=== PATIENT | male | born 1980 | race Two or more races ===

== ENCOUNTER 2023-05-11 11:37 | Emergency (ER) | payer OTHER ==
[~2023-05-11] VITALS: Ht 190.5 cm; Wt 108.9 kg
[2023-05-11 12:51] LABS: HEMATOCRIT 42.2 % (39.0-48.0); HEMOGLOBIN 14.6 g/dL (13-16.00); MEAN CELL VOLUME 93.2 fL (80.0-100.00); MEAN CORPUSCULAR HEMOGLOBIN 32.3 pg (27.00-32.0); MEAN CORPUSCULAR HGB CONC 34.6 g/dl (32.0-36.0); PLATELET COUNT 180 K/uL (150-450); RED BLOOD COUNT 4.52 M/uL (4.00-6.00); RED CELL DISTRIBUTION WIDTH 13.3 % (11.5-14.5)
[2023-05-11 12:54] LABS: URINE APPEARANCE Clear; URINE BILIRRUBIN Negative (NEGATIVE); URINE BLOOD Trace; URINE COLOR Yellow; URINE GLUCOSE Negative (NEGATIVE); URINE LEUKOCYTE Negative; URINE NITRATE Negative; URINE PROTEIN Trace (NEGATIVE)
[2023-05-11 12:58] LABS: URINE BACTERIA 12.6 uL (0.0-1933); URINE RBC 19.6 uL (0.0-20.8)
[2023-05-11 13:12] LABS: CALCIUM 9.4 mg/dL (8.5-10.1); CREATININE SERUM 1.09 mg/dL (0.70-1.30); GFR 73.49; POTASSIUM 3.96 mEq/L (3.5-5.1)
[2023-05-11 14:01] LABS: URINE WBC 1.5 uL (0.0-23.2)
== END 2023-05-11 16:07 | disposition home or self-care (01) ==
LOC: ER 11:37
PROVIDERS: Emergency Medicine
DX: K52.89 Other specified noninfective gastroenteritis and colitis (principal)

== ENCOUNTER 2023-09-20 14:35 | Emergency (ER) | payer OTHER ==
[~2023-09-20] VITALS: Ht 190.5 cm; Wt 110.7 kg
[2023-09-20] MEDS ORDERED: ACETAMINOPHEN WITH CODEINE 1 UDTAB TABLET PO ONE (16:30)
[2023-09-20] MEDS ORDERED: KETOROLAC TROMETHAMINE 60 MG VIAL IM ONE (16:30)
[2023-09-20] MEDS ORDERED: MEPERIDINE HCL/PF 25 MG/ML VIAL IM ONE (20:45)
== END 2023-09-20 23:43 | disposition home or self-care (01) ==
LOC: ER
DX: S62.014A Nondisplaced fracture of distal pole of navicular [scaphoid] bone of right wrist, initial encounter for closed fracture (principal); W18.39XA Other fall on same level, initial encounter; Y93.89 Activity, other specified; Y92.89 Other specified places as the place of occurrence of the external cause; Y99.9 Unspecified external cause status